=== PATIENT | male | born 1960 ===

== ENCOUNTER 2022-09-17 12:30 | Emergency (ER) | payer SELFPAY ==
[2022-09-17] MEDS ORDERED: Naloxone 2 MG/2 ML Syringe IVPUSH ONE (12:31)
[2022-09-17] MEDS ORDERED: Sodium Chloride 0.9% 1,000 ML IV ONE (12:35)
[2022-09-17] MEDS ORDERED: Sodium Chloride 0.9% 10 ML Syringe FLUSH PRN (12:35)
== END 2022-09-17 14:33 ==
LOC: DL.ED 12:30
DX: Z53.21 Procedure and treatment not carried out due to patient leaving prior to being seen by health care provider (principal)